=== PATIENT | female | born 1975 | race Two or more races ===

== ENCOUNTER 2022-03-09 03:57 | Emergency (ER) | payer BC, OTHER ==
[~2022-03-09] VITALS: Ht 162.6 cm; Wt 72.1 kg
--- NOTE | 2022-03-09 04:04 | NUR ---
MANJU FROM HOME. A/O X 3, C/O LEFT SIDED CP RADIATING TO LEFT ARM AND L NECK STARTED AT 0100.
--- NOTE | 2022-03-09 04:15 | NUR ---
DR WINTERS AT BED SIDE
[2022-03-09] MEDS ORDERED: KETOROLAC TROMETHAMINE INJ 30 MG/ML VIAL ONE (04:19)
[2022-03-09 04:21] LABS: BASOPHILS # (AUTO) 0.1 K/uL (0.0-0.2); EOSINOPHILS % (AUTO) 1.4 % (0.0-6.0); HEMATOCRIT 40 % (33-45); HEMOGLOBIN 13.4 g/dL (11.5-14.8); LYMPHOCYTES # (AUTO) 4.1 K/uL (0.8-4.8); LYMPHOCYTES % (AUTO) 38.1 % (20.0-44.0); MEAN CORPUSCULAR HGB CONC 34 g/dl (31.0-36.0); MEAN CORPUSCULAR VOLUME 79 fL (82-100); MONOCYTES # (AUTO) 0.8 K/uL (0.1-1.30); MONOCYTES % (AUTO) 7.6 % (2.0-12.0); NEUTROPHILS # (AUTO) 5.6 K/uL (1.8-8.9); NEUTROPHILS % (AUTO) 51.9 % (43.0-81.0); PLATELET COUNT (AUTO) 396 K/uL (150-450); RED BLOOD CELL COUNT(AUTO) 5.05 MIL/uL (4.0-5.2); WHITE BLOOD COUNT (AUTO) 10.7 K/uL (4.3-11.0)
[2022-03-09] MEDS ORDERED: LORAZEPAM INJ 2 MG/ML VIAL ONE (04:21)
[2022-03-09] MEDS ORDERED: LORAZEPAM INJ 2 MG/ML VIAL IV ONE (04:30)
[2022-03-09] MEDS ORDERED: KETOROLAC TROMETHAMINE INJ 30 MG/ML VIAL IV ONE (04:30)
[2022-03-09 04:44] LABS: CALCIUM, SERUM 8.5 mg/dL (8.5-10.1); CARBON DIOXIDE 26 mmol/L (21-32); CHLORIDE 102 mmol/L (98-107); CREATININE 1.1 mg/dL (0.6-1.3); GLUCOSE 95 mg/dL (74-106); POTASSIUM 3.5 mmol/L (3.5-5.1); SODIUM SERUM 137 mmol/L (136-145); UREA NITROGEN, BLOOD 12 mg/dL (7-18)
--- NOTE | 2022-03-09 05:56 | NUR ---
Patient discharged to home in stable condition. Written and verbal after care instructions given. Patient verbalizes understanding of instruction.
--- NOTE | 2022-03-09 05:56 | NUR ---
IV removed. Catheter intact and site benign. Pressure and 4x4 applied to site. No bleeding noted.
[2022-03-09 06:00] VITALS: BP 135/96
== END 2022-03-09 06:03 | disposition home or self-care (01) ==
LOC: ER 03:58
DX: R07.89 Other chest pain (principal); F41.9 Anxiety disorder, unspecified; I10 Essential (primary) hypertension; Z88.0 Allergy status to penicillin
CPT/HCPCS: 99285; 96374; 71045; 96375; 93005 ×2; 85025; 80048; 36415; 84484; 83880; J2060; J1885